=== PATIENT | female | born 1940 | race Caucasian/White ===

== ENCOUNTER → 2019-09-10 11:14 | Outpatient (BNVA) | payer MEDICARE, SELFPAY | PROVIDERS: Family Provider Internal Medicine; PCP Internal Medicine; Visit Provider Dermatology | DX: D48.9 Neoplasm of uncertain behavior, unspecified (principal); L82.0 Inflamed seborrheic keratosis; L57.0 Actinic keratosis; Z12.83 Encounter for screening for malignant neoplasm of skin | CPT/HCPCS: 11102; 17000; 17003; 88304; 88305; 99203; 99204 ==

== ENCOUNTER 2021-03-31 09:19 | Outpatient (CLI) | payer MEDICARE, SELFPAY ==
--- NOTE | 2021-03-31 09:30 | MM_ITS ---
WS: [id number] BILATERAL DIGITAL SCREENING MAMMOGRAPHY WITH CAD CLINICAL INFORMATION: SCREENING HISTORY: Screening mammogram. No current complaints. COMPARISON: TECHNIQUE: Bilateral CC and MLO views. FINDINGS: The breasts are composed of heterogeneous fibroglandular density tissue, which can limit the detectio n of small underlying mass lesions. Vascular calcification. Lucent centered calcifications. No suspic ious mass, asymmetry, calcifications, or architectural distortion. No evidence of malignancy. MM/[id number] IMPRESSION: BI-RADS: 2-Benign FOLLOW UP: 1 Year Follow-up Recommend return to annual screening mammography.
== END 2021-03-31 09:20 | disposition home or self-care (01) ==
PROVIDERS: PCP Internal Medicine; Visit Provider Internal Medicine
DX: Z12.31 Encounter for screening mammogram for malignant neoplasm of breast (principal)
CPT/HCPCS: 77067

== ENCOUNTER → 2021-07-13 13:16 | Outpatient (BNVA) | payer MEDICARE, SELFPAY | PROVIDERS: PCP Internal Medicine; Visit Provider Podiatrist Foot & Ankle Surgery | DX: L60.3 Nail dystrophy (principal); L85.1 Acquired keratosis [keratoderma] palmaris et plantaris; M20.41 Other hammer toe(s) (acquired), right foot; M20.42 Other hammer toe(s) (acquired), left foot | CPT/HCPCS: 17110; 99203; 99204 ==

== ENCOUNTER → 2021-09-13 12:43 | Outpatient (BNVA) | payer MEDICARE, SELFPAY | PROVIDERS: PCP Internal Medicine; Visit Provider Podiatrist Foot & Ankle Surgery | DX: L60.3 Nail dystrophy (principal); L85.1 Acquired keratosis [keratoderma] palmaris et plantaris; M20.40 Other hammer toe(s) (acquired), unspecified foot | CPT/HCPCS: 17110 ==

== ENCOUNTER 2022-05-18 09:56 | Outpatient (CLI) | payer MEDICARE, SELFPAY ==
--- NOTE | 2022-05-18 10:26 | MM_ITS ---
WS: [id number] BILATERAL SCREENING DIGITAL TOMOSYNTHESIS MAMMOGRAM WITH CAD HISTORY: SCREENING COMPARISON: 03/31/2021, 06/17/2013 and 06/05/2012 Bilateral CC and MLO views with tomosynthesis and synthetic mammography submitted. Computer aided det ection analyzed. Breast composition: The breasts are heterogeneously dense, which may obscure small masses. No suspici ous masses, microcalcifications or architectural distortion. Scattered asymmetries and benign calcifi cations in each breast. MM/[place] [id number] IMPRESSION: BI-RADS: 2-Benign FOLLOW UP: 1 Year Follow-up
== END 2022-05-18 09:57 | disposition home or self-care (01) ==
PROVIDERS: PCP Internal Medicine; Visit Provider Family Medicine
DX: Z12.31 Encounter for screening mammogram for malignant neoplasm of breast (principal)
CPT/HCPCS: 77063; 77067

== ENCOUNTER 2022-06-15 13:49 | Outpatient (CLI) | payer MEDICARE, SELFPAY ==
--- NOTE | 2022-06-15 14:19 | US_ITS ---
WS: [id number] LEFT 3D TOMOSYNTHESIS DIGITAL MAMMOGRAPHY WITH CAD CLINICAL INFORMATION: ABNORMAL ULTRASOUND HISTORY: Palpable LEFT breast lump COMPARISON: May 18, 2022 TECHNIQUE: 3 views of the left breast were obtained. FINDINGS: The left breast is composed of heterogeneous fibroglandular density tissue, which can limit the detec tion of small underlying mass lesions. In the area of palpable concern, there is dense parenchymal focal asymmetric density posterior depth with architectural distortion upper outer LEFT breast measuring 2.8 x 1.2 x 3.2 cm. This likely corre sponds to the below described ultrasound abnormality. Dense parenchymal tissue in this area is simila r in appearance over multiple prior examinations. Considering the ultrasound appearance recommend ult rasound-guided biopsy. Vascular calcification. Punctate and lucent centered calcifications. ULTRASOUND BREAST LEFT TECHNIQUE: Ultrasound left breast focused area of concern. FINDINGS: Ultrasound LEFT breast at 3:00 position 1 cm the nipple in the area of patient concern. Dense shadowi ng heterogeneous shadowing lesion and taller than wide. This has irregular borders and suspicious in appearance. Recommend further evaluation with ultrasound-guided biopsy. US/US breast LT limited* [id number] IMPRESSION: BI-RADS: 4-Suspicious Finding-Biopsy Should Be Considered FOLLOW UP: US Guided Biopsy Recommended
--- NOTE | 2022-06-15 15:44 | MM_ITS ---
WS: [id number] LEFT 3D TOMOSYNTHESIS DIGITAL MAMMOGRAPHY WITH CAD CLINICAL INFORMATION: ABNORMAL ULTRASOUND HISTORY: Palpable LEFT breast lump COMPARISON: May 18, 2022 TECHNIQUE: 3 views of the left breast were obtained. FINDINGS: The left breast is composed of heterogeneous fibroglandular density tissue, which can limit the detec tion of small underlying mass lesions. In the area of palpable concern, there is dense parenchymal focal asymmetric density posterior depth with architectural distortion upper outer LEFT breast measuring 2.8 x 1.2 x 3.2 cm. This likely corre sponds to the below described ultrasound abnormality. Dense parenchymal tissue in this area is simila r in appearance over multiple prior examinations. Considering the ultrasound appearance recommend ult rasound-guided biopsy. Vascular calcification. Punctate and lucent centered calcifications. ULTRASOUND BREAST LEFT TECHNIQUE: Ultrasound left breast focused area of concern. FINDINGS: Ultrasound LEFT breast at 3:00 position 1 cm the nipple in the area of patient concern. Dense shadowi ng heterogeneous shadowing lesion and taller than wide. This has irregular borders and suspicious in appearance. Recommend further evaluation with ultrasound-guided biopsy. MM/[id number] IMPRESSION: BI-RADS: 4-Suspicious Finding-Biopsy Should Be Considered FOLLOW UP: US Guided Biopsy Recommended
== END 2022-06-15 13:50 | disposition home or self-care (01) ==
PROVIDERS: PCP Internal Medicine; Visit Provider Family Medicine
DX: N64.59 Other signs and symptoms in breast (principal)
CPT/HCPCS: 76642; 77061; G0279

== ENCOUNTER 2022-06-26 11:59 | Outpatient (CLI) | payer MEDICARE, SELFPAY ==
--- NOTE | 2022-06-26 12:09 | US_ITS ---
WS: [email or web address] ULTRASOUND-GUIDED LEFT BREAST BIOPSY CLINICAL INFORMATION: ABNORMAL MAMMO COMPARISON: Ultrasound June 15, 2022 FINDINGS: The procedure including risks, benefits, and complications were discussed with the patient who agreed to proceed. Using sterile technique patient was prepped and draped in the usual sterile fashion. Aft er 1% lidocaine utilizing real-time ultrasound guidance 5 14-gauge cores were obtained of the LEFT br east lesion at the 2 o'clock position 3 cm from the nipple. Subsequently a titanium clip was placed i n the biopsy cavity. No immediate complications. PATHOLOGY DEMONSTRATES A. Breast, left, 2 o'clock, 3 cm from nipple, ultrasound-guided biopsy: - Invasive lobular carcinoma. - Cervantes Mckeon grade 2 (score 6). - Ductal carcinoma in situ (slide A2). - Breast profile has been performed and will be reported separately. US/[id number] IMPRESSION: 1. Uncomplicated ultrasound-guided LEFT breast biopsy. 2. The pathology demonstrates invasive lobular carcinoma grade 2. 3. Pathology also demonstrates DCIS. 4. Recommend breast surgery consultation for further evaluation. 5. Consider preoperative MRI considering pathology of lobular carcinoma to ass ess for multifocal disease. BI-RADS: 6-Known Biopsy-Proven Malignancy FOLLOW UP: Surgical Biopsy Recommended
[2022-06-29 14:19] LABS: Breast Profile ER,PR,HER2,Ki-6 See Report
== END 2022-06-26 12:00 | disposition home or self-care (01) ==
LOC: RAD 12:02
PROVIDERS: PCP Family Medicine; Visit Provider Family Medicine
DX: C50.412 Malignant neoplasm of upper-outer quadrant of left female breast (principal)
CPT/HCPCS: 19083; 88305; 88361; 88374

== ENCOUNTER 2022-08-03 11:03 | Oncology outpatient (recurring) (ONCR) | payer MEDICARE, SELFPAY | END 2022-08-11 23:59 | disposition home or self-care (01) | LOC: ONCMED 11:09 | PROVIDERS: PCP Family Medicine; Visit Provider Radiology Radiation Oncology | DX: C50.812 Malignant neoplasm of overlapping sites of left female breast (principal); Z17.0 Estrogen receptor positive status [ER+] | CPT/HCPCS: 99205 ==

== ENCOUNTER 2022-09-04 14:04 | Oncology outpatient (recurring) (ONCR) | payer MEDICARE, SELFPAY ==
--- OUTSIDE RECORDS SUMMARY | 2022-08-18 09:54 | XMS_ITS | Continuity of Care Document ---
Author Name Unknown Organization [facility] Address [address] [place] [address]- Care Team Providers Care Vacuum Kettle Cook Name Role Phone Alyssia BAR, Sophie Ward Primary Care Physicia n Encounter Au Financial Number [id number] Date(s): 07/18/22 - 07/18/22 [facility] [address] [place] [phone] Encounter Diagnosis Malignant neoplasm of upper-outer quadrant of left female breast(Discharge Diagnosis) - 07/18/22 Discharge Disposition: .Discharge to Home (Routine) Attending Physician: Monroe Ash MD Admitting Physician: Monroe Ash MD Allergies, Adverse Reactions, Alerts No Known Allergies Assessment and Plan Extracted from: Title:Instructions to Patients Author:Yris Valiente RN Date:07/18/22 Obstetrics and Gynecology Lumpectomy, Care After This sheet gives you information about how to care for yourself after your procedure. Your health care provider may also give you more specific instructions. If you have problems or questions, contact your health care provider. What can I expect after the procedure? After the procedure, it is common to have: ? ? Breast swelling. ? ? Breast tenderness. ? ? Stiffness in your arm or shoulder. ? ? A change in the shape and feel of your breast. ? ? Scar tissue that feels hard to the touch in the area where the lump was removed. Follow these instructions at home: Medicines ? ? Take blaq-gkk-ubydavi and prescription medicines only as told by your health care provider. ? ? If you were prescribed an antibiotic medicine, take it as told by your health care provider. Do not stop taking the antibiotic even if you start to feel better. ? ? Ask your health care provider if the medicine prescribed to you: ? ? Requires you to avoid driving or using heavy machinery. ? ? Can cause constipation. You may need to take these actions to prevent or treat constipation: ? ? Drink enough fluid to keep your urine pale yellow. ? ? Take hlde-iqu-bntvxyf or prescription medicines. ? ? Eat foods that are high in fiber, such as beans, whole grains, and fresh fruits and vegetables. ? ? Limit foods that are high in fat and processed sugars, such as fried or sweet foods. Incision care ? ? Follow instructions from your health care provider about how to take care of your incision. Make sure you: ? ? Wash your hands with soap and water before and after you change your bandage (dressing). If soap and water are not available, use hand ultrasonic tester. ? ? Change your dressing as told by your health care provider. ? ? Leave stitches (sutures), skin glue, or adhesive strips in place. These skin closures may need to stay in place for 2 weeks or longer. If adhesive strip edges start to loosen and curl up, you may trim the loose edges. Do not remove adhesive strips completely unless your health care provider tells you to do that. ? ? Check your incision area every day for signs of infection. Check for: ? ? More redness, swelling, or pain. ? ? Fluid or blood. ? ? Warmth. ? ? Pus or a bad smell. ? ? Keep your dressing clean and dry. ? ? If you were sent home with a surgical drain in place, follow instructions from your health care provider about emptying it. Bathing ? ? Do not take baths, swim, or use a hot tub until your health care provider approves. ? ? Ask your health care provider if you may take showers. You may only be allowed to take sponge baths. Activity ? ? Rest as told by your health care provider. ? ? Avoid sitting for a long time without moving. Get up to take short walks every 1? 2 hours. This is important to improve blood flow and breathing. Ask for help if you feel weak or unsteady. ? ? Return to your normal activities as told by your health care provider. Ask your health care provider what activities are safe for you. ? ? Be careful to avoid any activities that could cause an injury to your arm on the side of your surgery. ? ? Do not lift anything that is heavier than 10 lb (4.5 kg), or the limit that you are told, until your health care provider says that it is safe. Avoid lifting with the arm that is on the side of your surgery. ? ? Do not carry heavy objects on your shoulder on the side of your surgery. ? ? Do exercises to keep your shoulder and arm from getting stiff and swollen. Talk with your health care provider about which exercises are safe for you. General instructions ? ? Wear a supportive bra as told by your health care provider. ? ? Raise (elevate) your arm above the level of your heart while you are sitting or lying down. ? ? Do not wear tight jewelry on your arm, wrist, or fingers on the side of your surgery. ? ? Keep all follow-up visits as told by your health care provider. This is important. ? ? You may need to be screened for extra fluid around the lymph nodes and swelling in the breast and arm (lymphedema). Follow instructions from your health care provider about how often you should be checked. ? ? If you had any lymph nodes removed during your procedure, be sure to tell all of your health care providers. This is important information to share before you are involved in certain procedures, such as having blood tests or having your blood pressure taken. Contact a health care provider if: ? ? You develop a rash. ? ? You have a fever. ? ? Your pain medicine is not working. ? ? You have swelling, weakness, or numbness in your arm that does not improve after a few weeks. ? ? You have new swelling in your breast. ? ? You have any of these signs of infection: ? ? More redness, swelling, or pain in your incision area. ? ? Fluid or blood coming from your incision. ? ? Warmth coming from the incision area. ? ? Pus or a bad smell coming from your incision. Get help right away if you have: ? ? Very bad pain in your breast or arm. ? ? Swelling in your legs or arms. ? ? Redness, warmth, or pain in your leg or arm. ? ? Chest pain. ? ? Difficulty breathing. Summary ? ? After the procedure, it is common to have breast tenderness, swelling in your breast, and stiffness in your arm and shoulder. ? ? Follow instructions from your health care provider about how to take care of your incision. ? ? Do not lift anything that is heavier than 10 lb (4.5 kg), or the limit that you are told, until your health care provider says that it is safe. Avoid lifting with the arm that is on the side of your surgery. ? ? If you had any lymph nodes removed during your procedure, be sure to tell all of your health care providers. This is important information to share before you are involved in certain procedures, such as having blood tests or having your blood pressure taken. This information is not intended to replace advice given to you by your health care provider. Make sure you discuss any questions you have with your health care provider. Document Revised: 08/04/2019 Document Reviewed: 08/04/2019 [employer] Patient Education ?? 2021 [employer]. Pharmacology General Anesthesia, Adult, Care After This sheet gives you information about how to care for yourself after your procedure. Your health care provider may also give you more specific instructions. If you have problems or questions, contact your health care provider. What can I expect after the procedure? After the procedure, the following side effects are common: ? ? Pain or discomfort at the IV site. ? ? Nausea. ? ? Vomiting. ? ? Sore throat. ? ? Trouble concentrating. ? ? Feeling cold or chills. ? ? Feeling weak or tired. ? ? Sleepiness and fatigue. ? ? Soreness and body aches. These side effects can affect parts of the body that were not involved in surgery. Follow these instructions at home: For the time period you were told by your health care provider: ? ? Rest. ? ? Do not participate in activities where you could fall or become injured. ? ? Do not drive or use machinery. ? ? Do not drink alcohol. ? ? Do not take sleeping pills or medicines that cause drowsiness. ? ? Do not make important decisions or sign legal documents. ? ? Do not take care of children on your own. Eating and drinking ? ? Follow any instructions from your health care provider about eating or drinking restrictions. ? ? When you feel hungry, start by eating small amounts of foods that are soft and easy to digest (bland), such as toast. Gradually return to your regular diet. ? ? Drink enough fluid to keep your urine pale yellow. ? ? If you vomit, rehydrate by drinking water, juice, or clear broth. General instructions ? ? If you have sleep apnea, surgery and certain medicines can increase your risk for breathing problems. Follow instructions from your health care provider about wearing your sleep device: ? ? Anytime you are sleeping, including during daytime naps. ? ? While taking prescription pain medicines, sleeping medicines, or medicines that make you drowsy. ? ? Have a responsible adult stay with you for the time you are told. It is important to have someone help care for you until you are awake and alert. ? ? Return to your normal activities as told by your health care provider. Ask your health care provider what activities are safe for you. ? ? Take adpk-rie-scohsje and prescription medicines only as told by your health care provider. ? ? If you smoke, do not smoke without supervision. ? ? Keep all follow-up visits as told by your health care provider. This is important. Contact a health care provider if: ? ? You have nausea or vomiting that does not get better with medicine. ? ? You cannot eat or drink without vomiting. ? ? You have pain that does not get better with medicine. ? ? You are unable to pass urine. ? ? You develop a skin rash. ? ? You have a fever. ? ? You have redness around your IV site that gets worse. Get help right away if: ? ? You have difficulty breathing. ? ? You have chest pain. ? ? You have blood in your urine or stool, or you vomit blood. Summary ? ? After the procedure, it is common to have a sore throat or nausea. It is also common to feel tired. ? ? Have a responsible adult stay with you for the time you are told. It is important to have someone help care for you until you are awake and alert. ? ? When you feel hungry, start by eating small amounts of foods that are soft and easy to digest (bland), such as toast. Gradually return to your regular diet. ? ? Drink enough fluid to keep your urine pale yellow. ? ? Return to your normal activities as told by your health care provider. Ask your health care provider what activities are safe for you. This information is not intended to replace advice given to you by your health care provider. Make sure you discuss any questions you have with your health care provider. Document Revised: 10/14/2020 Document Reviewed: 05/13/2020 [employer] Patient Education ?? 2021 [employer] Future Appointments Appointment Date:07/26/2022 01:45:00 PM Scheduled Provider:Monroe Ash MD Location: Breast Surg Appointment Type:Established Patient Medications cloNIDine 0.1 mg oral tablet 0.1 mg = 1 tab, By mouth, BID, # 30 tab, Refill(s) 0, Pharmacy: [facility], [id number], 1 tab By mouth BID, 49.6, 07/18/22 8:26:00 CDT, kg, Weight (kg) (Clinical) Start Date: 07/18/22 Status: Ordered Multivitamin 1 tab, By mouth, Daily, To stop 07/14/22, Refill(s) 0 Start Date: 07/14/22 Status: Ordered [place] 5 mg-325 mg oral tablet 1 tab, By mouth, Q6H, 20 tab, 0, 0, Substitution Permitted, [facility], 62, Height (inches) (Clinical), 07/18/22 8:26:00 CDT, in, 49.6, Weight (kg) (Clinical), 07/18/22 8:26:00 CDT, kg Start Date: 07/18/22 Status: Ordered Problem List Condition Confirmation Course Effective Dates Status Health St atus Informant Ex-smoker Confirmed Active patient Malignant neoplasm of upper-outer quadrant of left female breast Confirmed Active Procedures Procedure Date Related Diagnosis Body Site Status BX/EXC LYMPH NODE OPEN DEEP AXILLARY NODE 07/18/22 Completed INSERTION BREAST IMPLANT MARLON E DAY OF MASTECTOMY 07/18/22 Completed MASTECTOMY PARTIAL 07/18/22 Comple cherise Appendectomy 1981 Completed Hysterectomy 1981 Completed Results Laboratory List Name Date BMP 07/18/22 Hemogram 07/18/22 Most recent to oldest [Reference Range]: 1 Anion Gap [2-15 mEq/L] 7 mEq/L (07/18/22 8:25 AM) Glucose, Serum/Plasma [70-100 mg/dL] 108 mg/dL *HI* (07/18/22 8:25 AM) WBC [4.8-10.8 Thous/mm3] 4.2 Thous/mm3 *LOW* (07/18/22 8:25 AM) Hct [37.0-47.0 %] 41.7 % (07/18/22 8:25 AM) Hgb [12.0-16.0 g/dL] 13.2 g/dL (07/18/22 8:25 AM) RBC [4.20-5.40 Million/mm3] 4.30 Million /mm3 (07/18/22 8:25 AM) MCV [80.0-100.0 fl] 97.0 fl (07/18/22 8:25 AM) MCH [26.0-34.0 pg] 30.7 pg (07/18/22 8:25 AM) MCHC [31.0-36.5 g/dL] 31.7 g/dL (07/18/22 8:25 AM) RDW [10.4-14.4 %] 12.6 % (07/18/22 8:25 AM) Platelets [130-440 Thous/mm3] 204 Thous/ mm3 (07/18/22 8:25 AM) MPV [9.4-12.4 fl] 10.3 fl (07/18/22 8:25 AM) Sodium [136-145 mEq/L] 142 mEq/L (07/18/22 8:25 AM) Potassium [3.5-5.1 mEq/L] 4.1 mEq/L (07/18/22 8:25 AM) Chloride [98-107 mEq/L] 108 mEq/L *HI* (07/18/22 8:25 AM) CO2 [21-32 mEq/L] 27 mEq/L (07/18/22 8:25 AM) BUN [7-18 mg/dL] 13 mg/dL (07/18/22 8:25 AM) Creatinine [0.55-1.02 mg/dL] 0.84 mg/dL (07/18/22 8:25 AM) Calcium [8.3-10.6 mg/dL] 9.3 mg/dL (07/18/22 8:25 AM) eGFR [>=60 mL/min/1.73 m2] 65 mL/min/1.7 3 m2 (07/18/22 8:25 AM) eGFR if [>=60 mL/min/1. 73 m2] 78 mL/min/1.73 m2 (07/18/22 8:25 AM) Radiology Reports * Exam Date Time Procedure Performing Provider Status 07/18/22 8:36 AM 07/18/22 8:37 AM MA Proc Mammo Breast Localization Left MA Mammo Post Procedure Uni Auth (Verified) Auth (Verified) Notes: (MA Proc Mammo Breast Localization Left) Reason For Exam: needle localization (MA Mammo Post Procedure Uni) Reason For Exam: needle localization MA Proc Mammo Breast Localization Left PROCEDURE: Mammographic left breast bracket wire localization, followed by unilateral digital mammogram of the left breast, without CAD. 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 MEDICATIONS: 4 cc buffered lidocaine SC; 10 cc buffered lidocaine with epinephrine SC. CONSENT: Obtained after the explanation of risks, benefits, and alternatives and placed in the chart. Timeout was performed. PROCEDURE DETAILS: Xm1 Tank Driver mammographic image of the left breast was obtained in the LM projection, using an alphanumeric grid. The breast was prepped in a sterile manner. The skin and deep tissues were anesthetized with buffered lidocaine. Two by cm 20G needles were inserted with the breast compressed in the LM projection, following the mammographic coordinates. An additional view was obtained to confirm accurate positioning, and a CC projection image was then obtained to assess needle depth. The needles were advanced to the appropriate depth, and localization wires were placed through the needles, bracketing the mass with associated architectural distortion, with the hooked tips just beyond. The needles were removed, and the area was cleansed and bandaged, securing the localization wires.The patient tolerated the procedure well and there were no complications. Post-procedure films showed the localization wires bracketing the mass with associated architectural distortion. IMPRESSION: Successful left breast bracket wire localization. Electronically signed by: Salma Jones 07/18/2022 11:56 AM Radiologist Salma Jones DO Signed 07/18/22 11:56:56 (Electronic Signature) Inlayer DAGMAR Technologist Austin Freire REPORT * Exam Date Time Procedure Performing Provider Status 07/18/22 10:11 AM NM Lymph Node Injection Isaias Chavira (Verified) Notes: (NM Lymph Node Injection) Reason For Exam: breast ca REPORT Radiologist Carlos Navarro MD Signed 07/18/22 10:13:15 (Electronic Signature) Inlayer SHILA Technologist NM Lymph Node Injection Lymphoscintigraphy, [place] Lymph Node Evaluation: Exam: NM Lymph Node Injection Date/Time of Exam: 07/18/2022 10:11 AM Diagnosis Codes: Comparison: None. Reading Location: [facility], [place] [address] \T\ [id number] Radiopharmaceutical: Tc-99m (technetium-99m) tilmanocept (Lymphoseek) Dose: 1.1 mCi intradermal Reason for Exam: breast ca. The above dose of radiopharmaceutical was injected into the felisha-aerolar area of the left breast. No imaging was performed. IMPRESSION: Injection of tracer as described above for purposes of sentinel node identification. Electronically signed by: Dr. Carlos Navarro 07/18/2022 10:13 AM Radiologist Carlos Navarro MD Signed 07/18/22 10:13:15 (Electronic Signature) Inlayer WDS Technologist AB Vital Signs Most recent to oldest [Reference Range]: 1 2 3 Blood Pressure 170/90mmHg (07/18/22 8:26 PM) 188/97mmHg *>HHI* (07/18/22 8:11 PM) 190/96mmHg *>HHI* (07/18/22 7:56 PM) Height (inches) (Clinical) 62 in (07/18/22 8:26 AM) Weight (kg) (Clinical) 49.6 kg (07/18/22 8:26 AM) Scale Type Bed (07/18/22 8:26 AM) Social History Social History Type Response Smoking Status Former smoker; Smoke less tobacco use: Never; Has the patient smoked in the last 365 days, even once? No; Type: Cigarettes; Number of years: 20; 1 entered on: 07/14/22 Sex Female 1Quit smoking approx age 42 Implantable Device List Procedure Provider Procedure Date Device Type Site Lumpectomy Breast with Senti timo Node Bio Unknown 07/18/22 Unknown Breast, Left Device Identifier Serial Number Lot or Batch Number Manufacturing Date Expiration Date Distinct Identification Code MRI Safety Implantable Status Assigning Authority [id number] Unknown Unknown 04/25/24 Unknown MR Mariza ibarra Active GS1 Hospital Discharge Instructions Patient Education 07/18/2022 19:56:45 General Anesthesia, Adult, Care After General Anesthesia, Adult, Care After This sheet gives you information about how to care for yourself after your procedure. Your health care provider may also give you more specific instructions. If you have problems or questions, contact your health care provider. What can I expect after the procedure? After the procedure, the following side effects are common: ??? Pain or discomfort at the IV site. ??? Nausea. ??? Vomiting. ??? Sore throat. ??? Trouble concentrating. ??? Feeling cold or chills. ??? Feeling weak or tired. ??? Sleepiness and fatigue. ??? Soreness and body aches. These side effects can affect parts of the body that were not involvedin surgery. Follow these instructions at home: For the time period you were told by your health care provider: ??? Rest. ??? Do not participate in activities where you could fall or become injured. ??? Do not drive or use machinery. ??? Do not drink alcohol. ??? Do not take sleeping pills or medicines that cause drowsiness. ??? Do not make important decisions or sign legal documents. ??? Do not take care of children on your own. Eating and drinking ??? Follow any instructions from your health care provider about eating or drinking restrictions. ??? When you feel hungry, start by eating small amounts of foods that are soft and easy to digest (bland), such as toast. Gradually return to your regular diet. ??? Drink enough fluid to keep your urine pale yellow. ??? If you vomit, rehydrate by drinking water, juice, or clear broth. General instructions ??? If you have sleep apnea, surgery and certain medicines can increase your risk for breathing problems. Follow instructions from your health care provider about wearing your sleep device: ??? Anytime you are sleeping, including during daytime naps. ??? While taking prescription pain medicines, sleeping medicines, or medicines that make you drowsy. ??? Have a responsible adult stay with you for the time you are told. It is important to have someone help care for you until you are awake and alert. ??? Return to your normal activities as told by your health care provider. Ask your health care provider what activities are safe for you. ??? Take rzmc-wjz-aiinmsx and prescription medicines only as told by your health care provider. ??? If you smoke, do not smoke without supervision. ??? Keep all follow-up visits as told by your health care provider. This is important. Contact a health care provider if: ??? You have nausea or vomiting that does not get better with medicine. ??? You cannot eat or drink without vomiting. ??? You have pain that does not get better with medicine. ??? You are unable to pass urine. ??? You develop a skin rash. ??? You have a fever. ??? You have redness around your IV site that gets worse. Get help right away if: ??? You have difficulty breathing. ??? You have chest pain. ??? You have blood in your urine or stool, or you vomit blood. Summary ??? After the procedure, it is common to have a sore throat or nausea. It is also common to feel tired. ??? Have a responsible adult stay with you for the time you are told. It is important to have someone help care for you until you are awake and alert. ??? When you feel hungry, start by eating small amounts of foods that are soft and easy to digest (bland), such as toast. Gradually return to your regular diet. ??? Drink enough fluid to keep your urine pale yellow. ??? Return to your normal activities as told by your health care provider. Ask your health care provider what activities are safe for you. This information is not intended to replace advice given to you by your health care provider. Make sure you discuss any questions you have with your health care provider. Document Revised: 10/14/2020 Document Reviewed: 05/13/2020 [employer] Patient Education ?? 2021 [employer]. 07/18/2022 19:56:45 Lumpectomy, Care After Lumpectomy, Care After This sheet gives you information about how to care for yourself after your procedure. Your health care provider may also give you more specific instructions. If you have problems or questions, contact your health care provider. What can I expect after the procedure? After the procedure, it is common to have: ??? Breast swelling. ??? Breast tenderness. ??? Stiffness in your arm or shoulder. ??? A change in the shape and feel of your breast. ??? Scar tissue that feels hard to the touch in the area where the lump was removed. Follow these instructions at home: Medicines ??? Take trvf-ozx-uzrgtrg and prescription medicines only as told by your health care provider. ??? If you were prescribed an antibiotic medicine, take it as told by your health care provider. Donot stop taking the antibiotic even if you start to feel better. ??? Ask your health care provider if the medicine prescribed to you: ??? Requires you to avoid driving or using heavy machinery. ??? Can cause constipation. You may need to take these actions to prevent or treat constipation: ??? Drink enough fluid to keep your urine pale yellow. ??? Take dadn-wvi-pnsxgxi or prescription medicines. ??? Eat foods that are high in fiber, such as beans, whole grains, and fresh fruits and vegetables. ??? Limit foods that are high in fat and processed sugars, such as fried or sweet foods. Incision care ??? Follow instructions from your health care provider about how to take care of your incision. Make sure you: ??? Wash your hands with soap and water before and after you change your bandage (dressing). If soap and water are not available, use hand ultrasonic tester. ??? Change your dressing as told by your health care provider. ??? Leave stitches (sutures), skin glue, or adhesive strips in place. These skin closures may need to stay in place for 2 weeks or longer. If adhesive strip edges start to loosen and curl up, you maytrim the loose edges. Do not remove adhesive strips completely unless your health care provider tells you to do that. ??? Check your incision area every day for signs of infection. Check for: ??? More redness, swelling, or pain. ??? Fluid or blood. ??? Warmth. ??? Pus or a bad smell. ??? Keep your dressing clean and dry. ??? If you were sent home with a surgical drain in place, follow instructions from your health careprovider about emptying it. Bathing ??? Do not take baths, swim, or use a hot tub until your health care provider approves. ??? Ask your health care provider if you may take showers. You may only be allowed to take sponge baths. Activity ??? Rest as told by your health care provider. ??? Avoid sitting for a long time without moving. Get up to take short walks every 1???2 hours. This is important to improve blood flow and breathing. Ask for help if you feel weak or unsteady. ??? Return to your normal activities as told by your health care provider. Ask your health care provider what activities are safe for you. ??? Be careful to avoid any activities that could cause an injury to your arm on the side of your surgery. ??? Do not lift anything that is heavier than 10 lb (4.5 kg), or the limit that you are told, untilyour health care provider says that it is safe. Avoid lifting with the arm that is on the side of your surgery. ??? Do not carry heavy objects on your shoulder on the side of your surgery. ??? Do exercises to keep your shoulder and arm from getting stiff and swollen. Talk with your health care provider about which exercises are safe for you. General instructions ??? Wear a supportive bra as told by your health care provider. ??? Raise (elevate) your arm above the level of your heart while you are sitting or lying down. ??? Do not wear tight jewelry on your arm, wrist, or fingers on the side of your surgery. ??? Keep all follow-up visits as told by your health care provider. This is important. ??? You may need to be screened for extra fluid around the lymph nodes and swelling in the breast and arm (lymphedema). Follow instructions from your health care provider about how often you should be checked. ??? If you had any lymph nodes removed during your procedure, be sure to tell all of your health care providers. This is important information to share before you are involved in certain procedures, such as having blood tests or having your blood pressure taken. Contact a health care provider if: ??? You develop a rash. ??? You have a fever. ??? Your pain medicine is not working. ??? You have swelling, weakness, or numbness in your arm that does not improve after a few weeks. ??? You have new swelling in your breast. ??? You have any of these signs of infection: ??? More redness, swelling, or pain in your incision area. ??? Fluid or blood coming from your incision. ??? Warmth coming from the incision area. ??? Pus or a bad smell coming from your incision. Get help right away if you have: ??? Very bad pain in your breast or arm. ??? Swelling in your legs or arms. ??? Redness, warmth, or pain in your leg or arm. ??? Chest pain. ??? Difficulty breathing. Summary ??? After the procedure, it is common to have breast tenderness, swelling in your breast, and stiffness in your arm and shoulder. ??? Follow instructions from your health care provider about how to take care of your incision. ??? Do not lift anything that is heavier than 10 lb (4.5 kg), or the limit that you are told, untilyour health care provider says that it is safe. Avoid lifting with the arm that is on the side of your surgery. ??? If you had any lymph nodes removed during your procedure, be sure to tell all of your health care providers. This is important information to share before you are involved in certain procedures, such as having blood tests or having your blood pressure taken. This information is not intended to replace advice given to you by your health care provider. Make sure you discuss any questions you have with your health care provider. Document Revised: 08/04/2019 Document Reviewed: 08/04/2019 [employer] Patient Education ?? 2021 [employer]. Follow Up Care 07/14/2022 09:55:27 With:Monroe Ash Address: [address] [place] [address] [facility] (1) When:07/26/2022 Comments:Call the office with any questions or concerns Surgical operation note * Monroe Ash MD: PERFORM, SIGN, VERIFY Event Display: Operative Report Authored Date: [id number] Patient: CIPRIANO PAYNE Age: 82 years Sex: Female : 1940 Associated Diagnoses: None Author: Monroe Ash MD Postoperative Information Date/ Time: 07/18/2022 18:01:00 Preoperative Diagnosis: Preop Dx (ST) SN - GCD - Preop Diagnosis: Left breast cancer (07/18/22 16:29:04) SN - GCD - Preop Diagnosis: LEFT BREAST CANCER (07/18/22 08:59:59). Postoperative Diagnosis: Postop Dx (ST) SN - GCD - Post Op Diagnosis: Left breast cancer (07/18/22 16:29:04) SN - GCD - Post Op Diagnosis: LEFT BREAST CANCER (07/18/22 08:59:59). Procedure: Procedure (ST) SN - SgP - Procedure: Lumpectomy Breast with [place] Node Biopsy (07/18/22) Sn - SgP - Surgeon Preferred Procedure: NEEDLE DIRECTED, with Biozorb placement (07/18/22) SN - SgP - Modifiers: Left (07/18/22). Performed by: Primary Surgeon (ST) Surgeon - Primary: Salma Jones DO Surface Mount Technology Operator: Physician's Surface Mount Technology Operator (ST) Physician's Surface Mount Technology Operator: Oksana Valadez Anesthetic Used: Anesthesia Type (ST) SN - SgP - Anesthesia Type: 3-General (07/18/22). Findings: INDICATIONS: The patient is a 82 year old with a left breast cancer. After extensive discussion, her preference was a partial mastectomy/lumpectomy. She agreed and understood need for Biozorb placement. She understood rationale for sentinel node biopsy and wanted to proceed. DESCRIPTION OF PROCEDURE: TERESE Dunbar was in the room the entire case and assisted with allcritical parts of operation including retraction. Breast was Prepped and draped in sterile fashion.Mammograms were placed on the overhead. Local was infiltrated and incision was made, sharply dissected through the skin and subcu down around the reinforced segment and the tissue between the 2 wiresplaced for localization. Excision of mass in the area of concern was performed. Margin markers wereplaced. Specimen radiograph indicated the area was nicely included. Sent this for permanent pathologic evaluation and confirmed it with the radiologist. I Established hemostasis in lumpectomy cavity,irrigated, suctioned out irrigation fluid. Took additional margin at the medial and caudal edges ofthe lumpectomy cavity. These were each appropriately marked and sent separately to pathology pleasemake note the deep extent of the lumpectomy extended to the pectoralis muscle. Following the partial mastectomy, attention was turned to placement of the BioZorb marker. The 3 ??dimensional marker implant was used to assist with delineation of the tumor bed location following mobilization and rearrangement of local tissue flaps for partial breast reconstruction. Sizers were used to assess the region of the tumor bed excision site, and it was determined that a 4 x 5 cm marker would be most suitable for implantation. Prior to placement, the cavity was checked for hemostasisand several stay-??-sutures were placed in order to secure the marker to the adjacent margin of tissue. A total of four 3??-0 PDS stay sutures were placed into the margins of the surgical cavity, and held in place with hemostats prior to placing the bio absorbable implant into the cavity. Each suture was placed into a different aspect of the tissue flaps that would ultimately serve to reconstruct thearea of the surgical defect created by the partial mastectomy. Sutures were placed superiorly, medially, laterally, and inferiorly. I did mobilize small flaps of parenchyma breast tissue with this intact blood supply to help fill the defect and overlie the BioZorb. I then closed in 2 layers with 3-0 Vicryl subcutaneous, 4-0 Monocryl subcuticular. I did mobilize small flaps of parenchyma breast tis franc with this intact blood supply to help fill the defect and overlie the BioZorb. I turned my attention to the axilla. Local was infiltrated and incision was made. Sharp dissected through the skin and subcu in the axilla. Identified the sentinel node times 3. Sent for permanent pathologic evaluation. Clips placed on lymphatics, hemostasis was obtained in the axilla and it was closed in 2 layers with 3-0 Vicryl subcutaneous, 4-0 Monocryl subcuticular. Steri-Strips and dressingswere placed. The patient tolerated the procedure quite well. Estimated blood loss less than 50 mL. . Specimens Removed: Specimens (ST) SN - CS - Comments: Caudal Margin Reexcision Stitch Specimen Side (07/18/22 17:12:49) SN - CS - Comments: Medial Margin Reexcision Stitch Specimen Side (07/18/22 17:12:49) SN - CS - Comments: Left Axillary [place] Node ??#2 (07/18/22 17:07:30) SN - CS - Comments: Left Axillary [place] Node ??#1 (07/18/22 17:07:30) SN - CS - Comments: Left lumpectomy (07/18/22 16:48:56). Estimated Blood Loss: 100 ml. Complications: None. Description of Techniques: Standard. Implants/Grafts: Implant (ST) SN - IL - Implant Description: MARKER BIOZORB 3X4CM [id number] (07/18/22). Final Count Verification: SN - FCV (ST) SN - FCV - Instruments (Count Correct): n/a (07/18/22 17:36:34) SN - FCV - Sharps/Hiltons (Count Corre: Yes (07/18/22 17:36:34) SN - FCV - Sponges (Count Correct): Yes (07/18/22 17:36:34). Electronically signed by:Monroe Ash MD 07/18/22 18:05 Radiology * Carlos Navarro MD: PERFORM, TRANSCRIBE, VERIFY, VERIFY Event Display: Report Authored Date: [id number] Radiologist Carlos Navarro MD Signed 07/18/22 10:13:15 (Electronic Signature) Inlayer WDS Technologist AB * Salma Jones DO: PERFORM, TRANSCRIBE, VERIFY, VERIFY Event Display: Powerscribe Read Authored Date: [id number] PROCEDURE: Mammographic left breast bracket wire localization, followed by unilateral digital mammogram of the left breast, without CAD. 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 MEDICATIONS: 4 cc buffered lidocaine SC; 10 cc buffered lidocaine with epinephrine SC. CONSENT: Obtained after the explanation of risks, benefits, and alternatives and placed in the chart. Timeout was performed. PROCEDURE DETAILS: Xm1 Tank Driver mammographic image of the left breast was obtained in the LM projection, using an alphanumeric grid. The breast was prepped in a sterile manner. The skin and deep tissues were anesthetized with buffered lidocaine. Two by cm 20G needles were inserted with the breast compressed in the LM projection, following the mammographic coordinates. An additional view was obtained to confirm accurate positioning, and a CC projection image was then obtained to assess needle depth. The needles were advanced to the appropriate depth, and localization wires were placed through the needles, bracketing the mass with associated architectural distortion, with the hooked tips just beyond. The needles were removed, and the area was cleansed and bandaged, securing the localization wires.The patient tolerated the procedure well and there were no complications. Post-procedure films showed the localization wires bracketing the mass with associated architectural distortion. IMPRESSION: Successful left breast bracket wire localization. Electronically signed by: Salma Jones 07/18/2022 11:56 AM Radiologist Salma Jones DO Signed 07/18/22 11:56:56 (Electronic Signature) Inlayer DAGMAR Technologist Austin Freire Note * Carlos Navarro MD: PERFORM, TRANSCRIBE, VERIFY, VERIFY Event Display: Powerscribe Read Authored Date: [id number] Lymphoscintigraphy, [place] Lymph Node Evaluation: Exam: NM Lymph Node Injection Date/Time of Exam: 07/18/2022 10:11 AM Diagnosis Codes: Comparison: None. Reading Location: [place] [address] Radiopharmaceutical: Tc-99m (technetium-99m) tilmanocept (Lymphoseek) Dose: 1.1 mCi intradermal Reason for Exam: breast ca. The above dose of radiopharmaceutical was injected into the felisha-aerolar area of the left breast. No imaging was performed. IMPRESSION: Injection of tracer as described above for purposes of sentinel node identification. Electronically signed by: Dr. Carlos Navarro 07/18/2022 10:13 AM Radiologist Carlos Navarro MD Signed 07/18/22 10:13:15 (Electronic Signature) Inlayer SHILA Technologist * Salma Jones DO: PERFORM, TRANSCRIBE, VERIFY, VERIFY Event Display: Report Authored Date: [id number] Cardiology * Deon Mccullough MD: SIGN, VERIFY Event Display: EKG 12-Lead Authored Date: [id number] Patient Care team information Care Team Personnel Name: Monroe Ash MD Position: PX Physician - General Surgery Med Service: General Surgery Member Role: Ordering Physician Address: Address: [address] [place] [id number]- Care Team Related Persons Name: ABDULLAHINAMRATA CHERRY Address: home [address] [facility] [place] [id number] Name: CHERRY PAYNE
--- NOTE | 2022-08-22 13:28 | N.ONRAD NP_ITS ---
Radiation Oncology Consultation Patient Name: Opal Hong Date of : 1940 Date of Service: 08/22/2022 Attending Physician: Thong Amaral M.D. Opal Hong was seen in consultation at the request of Monroe Ash M.D. this afternoon for evaluation regarding potential adjuvant breast radiotherapy in the management of an early-stage breast cancer. She was evaluated by her primary care physician for a left breast mass. A 3D tomosynthesis mammogram (independently reviewed in [facility]) was ordered on June 15, 2022 identified a 2.8 cm x 1.2 cm x 3.2 cm focal asymmetry within the left upper-outer quadrant of the breast. Ultrasonography confirmed a lesion with shadowing located within the left breast at the 3 o'clock position that was 1 cm from the nipple. An ultrasound-guided breast biopsy obtained on June 26, 2022 diagnosed a grade 2 invasive lobular carcinoma. The breast cancer prognostic profile reported estrogen receptor positivity (90%), strong receptor positivity (50%), and HER2 negative (1+; ratio 1). The KI???67 was 5%. A left wire-guided lumpectomy and sentinel lymph node biopsy was performed by Monroe Ash M.D. on July 18, 2022. The pathology report described a 2.9 cm grade 2 invasive lobular carcinoma with LCIS present. All surgical margins were negative for malignancy. A total of 2 benign sentinel lymph nodes were harvested. An Oncotype DX recurrence score was 17 (<1% chemotherapy benefit). She was referred to discuss adjuvant radiotherapy. I reviewed the [place] [employer] Commission on Cancer Staging for breast cancer and specifically the patient's pathological stage IA (T2N0) corresponding to her disease and The National Comprehensive Cancer Network Guidelines for the omission of breast irradiation in patients 70 years of age or older with estrogen receptor positive, clinically node-negative, T1-2 tumors who will receive adjuvant endocrine therapy. This endorsement is in accordance with the randomized trial (CALGB 9343) published in The [place] Journal of Medicine that demonstrated the addition of radiotherapy to endocrine therapy improved local control compared to endocrine therapy alone without a breast cancer-specific survival nor overall survival advantage. The patient???s treatment plan was discussed with Anderson Beltran M.D. Signed by: Dr. Thong Amaral 08/22/2022 1:27:31 PM
== END 2022-09-11 23:59 | disposition home or self-care (01) ==
PROVIDERS: PCP Family Medicine; Visit Provider Internal Medicine Medical Oncology
DX: C50.919 Malignant neoplasm of unspecified site of unspecified female breast (principal); M85.80 Other specified disorders of bone density and structure, unspecified site; Z78.0 Asymptomatic menopausal state; Z87.891 Personal history of nicotine dependence; Z85.828 Personal history of other malignant neoplasm of skin
CPT/HCPCS: 99204; 99214

== ENCOUNTER 2022-09-07 14:41 | Outpatient (CLI) | payer MEDICARE, SELFPAY ==
--- NOTE | 2022-09-07 15:00 | XR_ITS ---
WS: [id number] DEXA (DUAL ENERGY X-RAY ABSORPTIOMETRY) Bone mineral density was performed using a [employer] machine. HISTORY: History of osteopenia COMPARISON: None available. Lumbar spine BMD (L1-L4): 0.879 g/cm2 T score: -2.5 Z score: -0.2 Total hip BMD: Left: 0.761 g/cm2. T score: -2.0 Z score: 0.6 Right: 0.740 g/cm2. T score: -2.1 Z score: 0.4 10 year probability of a major osteoporotic fracture is 22.0%. XR/XR DEXA axial skeleton* [id number] IMPRESSION: OSTEOPOROSIS based upon the WHO classification for females.
== END 2022-09-07 14:42 | disposition home or self-care (01) ==
PROVIDERS: PCP Family Medicine; Visit Provider Internal Medicine Medical Oncology
DX: M81.0 Age-related osteoporosis without current pathological fracture (principal); M85.80 Other specified disorders of bone density and structure, unspecified site; C50.919 Malignant neoplasm of unspecified site of unspecified female breast; Z78.0 Asymptomatic menopausal state
CPT/HCPCS: 77080

== ENCOUNTER 2022-09-12 09:53 | Oncology outpatient (recurring) (ONCR) | payer MEDICARE, SELFPAY ==
[2022-09-12 10:01] LABS: Basophils % 0.8 %; Eosinophils # 0.1 10^3/uL (0.0-0.8); Eosinophils % 2.3 %; Hematocrit 41.5 % (37.0-47.0); Hemoglobin 13.4 g/dL (11.5-15.3); Lymphocytes # 2.2 10^3/uL (0.8-4.8); Lymphocytes % 44.7 %; Mean Corpuscular HGB Conc 32.3 g/dL (30.0-36.0); Mean Corpuscular Hemoglobin 31.3 pg (28.0-34.0); Mean Platelet Volume 9.8 fL (7.4-10.4); Monocytes # 0.5 10^3/uL (0.2-0.9); Monocytes % 9.3 %; Neutrophils # 2.08 10^3/uL (1.8-7.7); Neutrophils % 42.7 %; Nucleated Red Blood Cells % 0 %; Platelet Count 193 10^3/cmm (130-400); Red Blood Count 4.28 10^6/uL (4.1-5.3); White Blood Count 4.9 10^3/uL (4.0-10.0)
[2022-09-12 10:27] LABS: Alanine Aminotransferase 14 U/L (0-33); Albumin Level 4.3 g/dL (3.5-5.2); Alkaline Phosphatase 67 U/L (35-105); Anion Gap 13.3 (5-19); Aspartate Amino Transferase 21 U/L (0-32); Blood Urea Nitrogen 15 mg/dL (8-23); Calcium 9.8 mg/dL (8.5-10.5); Carbon Dioxide 29 mmol/L (22-29); Chloride 102 mmol/L (98-107); Globulin 2.8 g/dL (1.3-4.6); Glucose 79 mg/dL (65-115); Osmolality Calculated 290 mOsm/kg (285-295); Potassium 4.3 mmol/L (3.5-5.1); Sodium 140 mmol/L (136-145); Total Bilirubin 0.4 mg/dL (0.15-1.2); Total Protein 7.1 g/dL (6.6-8.7)
[2022-09-12 11:23] LABS: 25 Hydroxy Vitamin D 56 ng/mL (30-100)
[2022-09-12 11:48] LABS: Thyroid Stimulating Hormone 3.13 uIU/mL (0.27-4.20); Vitamin B12 878 pg/mL (232-1245)
== END 2022-10-12 23:59 | disposition home or self-care (01) ==
PROVIDERS: Internal Medicine Medical Oncology; PCP Family Medicine; Visit Provider Internal Medicine Medical Oncology
DX: C50.812 Malignant neoplasm of overlapping sites of left female breast (principal); Z17.0 Estrogen receptor positive status [ER+]; R54 Age-related physical debility; R53.0 Neoplastic (malignant) related fatigue; Z79.899 Other long term (current) drug therapy; Z79.811 Long term (current) use of aromatase inhibitors; Z53.9 Procedure and treatment not carried out, unspecified reason
CPT/HCPCS: 36415; 80053; 82306; 82607; 84443; 85025; 99215

== ENCOUNTER → 2023-08-14 08:40 | Outpatient (BNVA) | payer MEDICARE, SELFPAY | PROVIDERS: PCP Family Medicine; Referring Provider Family Medicine; Visit Provider Specialist | DX: G30.9 Alzheimer's disease, unspecified (principal); F02.80 Dementia in other diseases classified elsewhere, unspecified severity, without behavioral disturbance, psychotic disturbance, mood disturbance, and anxiety; Z78.9 Other specified health status; R41.3 Other amnesia; R03.0 Elevated blood-pressure reading, without diagnosis of hypertension | CPT/HCPCS: 96116; 99204; 99205 ==

== ENCOUNTER 2023-09-12 09:08 | Outpatient (CLI) | payer MEDICARE, SELFPAY ==
--- NOTE | 2023-09-12 09:14 | MM_ITS ---
WS: [id number] DIAGNOSTIC BILATERAL DIGITAL BREAST TOMOSYNTHESIS MAMMOGRAPHY WITH CAD HISTORY: HX OF BREAST CANCER, patient has chosen not to proceed with chemotherapy or radiation. COMPARISON: 06/15/2022, 05/18/2022, 03/31/2021 TECHNIQUE: Bilateral craniocaudad, mediolateral oblique, and mediolateral views are submitted with to mosyessy and RAYSA. Computer aided detection utilized. Breast composition: The breasts are heterogeneously dense, which may obscure small masses. Scattered fibroglandular densities throughout each breast. Post lumpectomy biopsy clip and cavity is noted in t he upper outer quadrant of the LEFT breast. This is the site of lumpectomy and known neoplasm. Suspec t mild progression of soft tissue surrounding the lumpectomy site. These changes may all be related t o the lumpectomy and surgery or progression of tumor. Extensive breast arterial calcifications. MM/[place] [id number] IMPRESSION: BI-RADS: 6-Known Biopsy-Proven Malignancy FOLLOW UP: See Report Patient has a known malignancy in the upper outer quadrant of the LEFT breast f or which no radiation or chemotherapy is being performed. There has been a slig ht progression in the peripheral soft tissue at the site of the lumpectomy. Thi s all may be postsurgical changes or progression of tumor.
== END 2023-09-12 09:09 | disposition home or self-care (01) ==
LOC: RAD 09:09
PROVIDERS: PCP Family Medicine; Visit Provider Family Medicine
DX: Z12.31 Encounter for screening mammogram for malignant neoplasm of breast (principal); Z85.3 Personal history of malignant neoplasm of breast
CPT/HCPCS: 77062; G0279

== ENCOUNTER 2023-09-27 15:05 | Outpatient (CLI) | payer MEDICARE, SELFPAY ==
--- NOTE | 2023-09-27 15:15 | MR_ITS ---
WS: [id number] MRI BRAIN WITHOUT CONTRAST HISTORY: G30.9 - Alzheimer's disease, unspecified COMPARISON: None available. TECHNIQUE: Diffusion imaging, multiplanar T1, T2 and FLAIR imaging obtained. No diffusion abnormalities. No acute infarct. Moderate T2 and FLAIR signal hyperintensities surroundi ng the ventricles and extending supratentorial. Additional signal abnormalities in the insular ribbon s bilaterally. There is some mild prior ischemic change in the davi and RIGHT cerebellum. Moderate hi ppocampal atrophy. No hemorrhage or prior infarct. Ventricles and extra-axial spaces are normal. No inferior displacement of cerebellar tonsils. The sella turcica and pituitary gland are unremarkabl e. Dural venous sinuses and jackson of Miguel demonstrate no abnormality on this unenhanced studies. Paranasal sinuses: Clear. Mastoid air cells: Normal. Calvarium and scalp: Intact. MR/MR head wo con* [id number] IMPRESSION: 1. No acute infarct, no hemorrhage or edema. 2. Moderate atrophy and small vessel ischemic disease. Small vessel disease is predominantly surrounding the ventricles with a smaller amount of microangiopa thic disease in the davi and RIGHT cerebellum. 3. Moderate hippocampal atrophy.
== END 2023-09-27 15:06 | disposition home or self-care (01) ==
LOC: RAD 15:07
PROVIDERS: PCP Family Medicine; Visit Provider Specialist
DX: G30.9 Alzheimer's disease, unspecified (principal); F02.80 Dementia in other diseases classified elsewhere, unspecified severity, without behavioral disturbance, psychotic disturbance, mood disturbance, and anxiety; Z78.9 Other specified health status; G31.9 Degenerative disease of nervous system, unspecified
CPT/HCPCS: 70551

== ENCOUNTER → 2023-11-13 13:49 | Outpatient (BNVA) | payer MEDICARE, SELFPAY | PROVIDERS: PCP Family Medicine; Visit Provider Specialist | DX: G30.9 Alzheimer's disease, unspecified (principal); F02.80 Dementia in other diseases classified elsewhere, unspecified severity, without behavioral disturbance, psychotic disturbance, mood disturbance, and anxiety; Z78.9 Other specified health status; I20.0 Unstable angina; R41.3 Other amnesia; R03.0 Elevated blood-pressure reading, without diagnosis of hypertension | CPT/HCPCS: 99215 ==

== ENCOUNTER → 2023-11-14 11:19 | Outpatient (BNVA) | payer MEDICARE, SELFPAY | PROVIDERS: PCP Family Medicine; Visit Provider Family Medicine | DX: I20.0 Unstable angina (principal); Z78.9 Other specified health status; M81.0 Age-related osteoporosis without current pathological fracture; G30.9 Alzheimer's disease, unspecified; F02.80 Dementia in other diseases classified elsewhere, unspecified severity, without behavioral disturbance, psychotic disturbance, mood disturbance, and anxiety; L90.0 Lichen sclerosus et atrophicus | CPT/HCPCS: 80053; 80061; 82306; 82607; 82746; 83735; 84443; 85025 ==

== ENCOUNTER 2023-12-24 08:47 | Outpatient (CLI) | payer MEDICARE, SELFPAY ==
--- NOTE | 2023-12-24 | ECG_ITS ---
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 Interpretive Statements Lung unchanged pre/post procedure; Intraprocedure shortess of breath; Symptoms resoled by discharge PROCEDURE: At the baseline, the EKG revealed normal sinus rhythm with diffuse nonspecific ST changes. The baseline heart was 72 bpm with a blood pressue of 166/97 mm of Hg Lexiscan was infused over a period of 20 seconds. A total of 0.4 milligrams of Lexiscan was infused. The stress phase was continued for a total of 5 minutes. Heart rate at the end of the stress phase was 76 bpm with a blood pressure 166/92 mm of Hg. The EKG at the peak infusion revealed no significant changes. Sestamibi was injected 20 seconds after the Lexiscan infusion. Heart rate at the end of the recovery phase was 69 bpm with a blood pressure of 155/78 mm of Hg. CONCLUSION: 1. No significant EKG changes with the LexiScan infusion 2. No LexiScan induced chest pain or cardiac arrhythmia 3. Normal blood pressure and heart rate response 4. Sestamibi/sestamibi perfusion scan pending; see separate report. Electronically Signed On 12-29-2023 12:51:52 PROGRESS MAN by Clay Eastman M.D. [id number]
[2023-12-24 09:29] VITALS: BMI 18.3
--- NOTE | 2023-12-24 09:30 | NMCV_ITS ---
NM isaias perf SPECT r/s* [id number] Opal Hong Age: 83 Gender: F : 1940 Exam Date: 12/24/2023 09:58 Ordering Phys: Nu Malhotra MD Technologist: ARTURO Witt Exam Location: [facility] Indications: cp STRESS TEST Please see separate stress test report in [facility] for full findings IMAGE PROTOCOL Rest/Stress 1 Lexiscan Day Radiopharmaceutical Dose (mCi) Administration Site Administered by Rest: Tc-99m 10.5 IV ARTURO Witt Sestamibi Stress:Tc-99m 32.6 IV ARTURO Rowe Sestamibi Rest: 24-Dec-2023 60 Discovery 630 Stress: 24-Dec-2023 15 Discovery 630 0.4mg Lexiscan. Supine position only as patient was unable to lay prone. SPECT RESULTS Technical Quality: Good Raw Data Analysis: Normal Image Corrections: No attenuation or motion correction applied Summed Stress Score: 0 Summed Rest Score: 8 Summed Difference Score: 0 PERFUSION FINDINGS Fairly uniform myocardial tracer uptake with no significant perfusion abnormalities FUNCTIONAL RESULTS (calculated via Gated SPECT) Stress Image LV EF (%): 80 Stress EDV (mL):41 TID: 0.7 Stress ESV (mL):8 FUNCTIONAL FINDINGS: Segmental wall motion analysis revealing no gross wall motion abnormalities IMPRESSIONS 1. Myocardial perfusion imaging revealing fairly uniform myocardial tracer uptake with no significant perfusion abnormalities. 2. Normal LV ejection fraction of 80%. 3. LV wall motion analysis revealing no gross wall motion abnormalities. 4. Normal LV volume Low probability for coronary ischemia, based on the above findings Dr Clay Eastman MD [facility] (Electronically Signed) Final Date: 24 December 2023 23:23 S
[2023-12-24] MEDS: regadenoson 0.4 Mg/5 ml Syringe IVP (10:43)
[2023-12-24 10:53] VITALS: BP 155/78; PULSE 68
== END 2023-12-24 08:48 | disposition home or self-care (01) ==
PROVIDERS: PCP Family Medicine; Visit Provider Specialist
DX: I20.0 Unstable angina (principal); R06.02 Shortness of breath
CPT/HCPCS: 36415; 78452; 93017; 96374; A9500; J2785

== ENCOUNTER → 2024-07-08 13:06 | Outpatient (BNVA) | payer MEDICARE, SELFPAY | PROVIDERS: PCP Family Medicine; Visit Provider Family Medicine | DX: R07.9 Chest pain, unspecified (principal); G30.9 Alzheimer's disease, unspecified; F02.80 Dementia in other diseases classified elsewhere, unspecified severity, without behavioral disturbance, psychotic disturbance, mood disturbance, and anxiety | CPT/HCPCS: 80053; 80061; 83735; 84439; 84443; 85025 ==

== ENCOUNTER 2024-07-15 13:21 | Emergency (ER) | payer MEDICARE, SELFPAY ==
[2024-07-15 13:28] VITALS: BP 206/95; PULSE 77; TEMP 36.7; O2SAT 100; BMI 19.2
--- NOTE | 2024-07-15 13:43 | ECG_ITS ---
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
--- NOTE | 2024-07-15 14:30 | XRR_ITS ---
PROCEDURE INFORMATION: Exam: XR Chest Exam date and time: 07/15/2024 2:31 PM Age: 84 years old Clinical indication: Dyspnea; Additional info: Dyspnea/cough TECHNIQUE: Imaging protocol: Radiologic exam of the chest. Views: 1 view. COMPARISON: CR XR chest 2V* [id number] 05/25/2022 7:46 AM FINDINGS: Tubes, catheters and devices: Surgical clips overlie the left chest/axilla. Lungs: Mild ill-defined bibasilar opacities. Pleural spaces: Unremarkable. No pleural effusion. No pneumothorax. Heart/Mediastinum: Unremarkable. No cardiomegaly. Bones/joints: Unremarkable. XR/XR chest 1V portable [id number] IMPRESSION: Mild ill-defined bibasilar opacities could represent atelectasis, though infiltrate is not excluded in the correct clinical setting.
--- NOTE | 2024-07-15 14:33 | ED_ITS ---
HPI - General Adult 2 General: Chief complaint: General Medical Stated complaint: dr mancini, high bp Time Seen by Provider: 07/15/24 14:03 History of Present Illness: 84-year-old female presents to the [facility] ency room with complaint of elevated blood pressure. accompanies her she has some dementia and is difficult to get a lot of history from her. Blood pressures been elevated recently and she is complaining of headache and some chest discomfort. Associated symptoms: Reports chest pain; Deny dyspnea or rash Related Data Home Medications ?Medication ?Instructions ?Recorded ?Confirmed multivitamin 1 tab PO QAM 07/15/24 Previous Rx's ?Medication ?Instructions ?Recorded galantamine 4 mg tablet 4 mg PO BID #180 tabs meloxicam 7.5 mg tablet See Rx Instructions .Route 0 07/03/24 .COMPLEX #60 tabs isosorbide mononitrate 30 mg 30 mg PO DAILY #30 tabs 0 07/08/24 tablet,extended release 24 hr amlodipine 2.5 mg tablet 5 mg (2 x 2.5 mg) PO DAILY # 30 tabs 07/15/24 Allergies Allergy/AdvReac Type Severity Reaction Status Date / Time No Known Allergies Allergy Verified 07/15/24 13:38 Review of Systems 2 Const: Denies: fever(s) or chills Card: Reports: chest pain Resp: Denies: dyspnea GI: Denies: abdominal pain : Denies: dysuria, urinary frequency or urinary urgency Musc: Denies: neck pain or back pain Skin/Breast: Denies: rash PFSH ED 2 PFSH: Medical History DNI (do not intubate) Dr. Boone personally discussed with patient, & daughter. Advanced directive paperwork has been completed. Do not resuscitate Dr. Boone personally discussed with patient, & daughter. Advanced directive paperwork has been completed. 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, lumpectomy 07/13/2022 Osteoporosis Breast cancer History of nonmelanoma skin cancer Surgical History History of bilateral tubal ligation History of appendectomy History of lumpectomy of left breast (07/18/22) Left breast lumpectomy with axillary sentinel lymph node biopsy History of left breast biopsy (06/26/22) Family History Other CAD (coronary artery disease) Cancer Diabetes Hypertension Social History Smoking and tobacco/nicotine status: never used tobacco/nicotine Quit status (tobacco/nicotine): has quit using Year quit tobacco: Quit smoking at age 36 Former quit date comment: Smoked for 20 years Alcohol intake: former Former alcohol use details: 1 beer/day for years but nothing recently Substance/Drug Use: never Lives independently: Yes Household members: spouse Marital status: Marital status details: 66 years as of 2023 Number of children: 4 Leisure activites: reading and other Leisure activities details: puzzles [place]/[employer]: [employer] Special eden needs: No Agree to transfusion: Yes Physical Exam 2 Const: GENERAL APPEARANCE: cooperative ORIENTATION/CONSCIOUSNESS: Yes awake HENMT: COMMON NORMALS: normocephalic and atraumatic HEAD & SCALP: n ormocephalic and atraumatic Resp: COMMON NORMALS: normal respiratory effort, No retractions, No use of accessory muscles and clear to auscultation bilaterally AUSCULTATION: clear to auscultation bilaterally Cardio: COMMON NORMALS: regular rate, regular rhythm and No murmurs present (Cardio) RATE: regular rate RHYTHM: regular rhythm GI: COMMON NORMALS: Soft to palpation and No hepatosplenomegaly present A USCULTATION: Yes normoactive bowel sounds PALPATION: Yes Soft to palpation, No Tenderness to palpation present (GI), No Guarding due to palpation present (GI) and Yes No hepatosplenomegaly present Extremity: COMMON NORMALS: normal to inspection, capillary refill normal, no clubbing, cyanosis or edema, no calf tenderness and no pedal edema Neuro: OTHER: No focal neurologic deficits strength equal in all extremities no facial's asymmetry. Skin: COMMON NORMALS: no rashes or lesions noted GENERAL SKIN EXAM: no rashes or lesions noted Course 2 Vital Signs: Vital signs: Vital Signs Temperature 98.0 F 07/15/24 13:28 Pulse Rate 71 07/15/24 17:29 Blood Pressure 158/82 07/15/24 17:29 Pulse Oximetry 99 07/15/24 17:29 Oxygen Delivery Me thod Room Air 07/15/24 13:28 MDM - General Adult Medical Decision Making Patient has significant and she was very agitated. Blood pressure did improve with treatments given cardiac enzymes and EKGs did not show any acute coronary syndrome. is very anxious to take her home insisting. We had to convince him to wait for the second troponin. Will have her increase the amlodipine to 5 mg daily continue other medications and then recheck with her primary care within the next week return if has further problems. CT head negative. Differential Diagnosis CVA, TIA, accelerated hypertension, acute coronary syndrome Medical Records I reviewed the patient's medical records. Lab Data I reviewed the patient's lab results. 07/15/24 14:20 07/15/24 14:20 Radiology Impressions Chest X-Ray 07/15/24 14:30 IMPRESSION: Mild ill-defined bibasilar opacities could represent atelectasis, though infiltrate is not excluded in the correct clinical setting. Head CT 07/15/24 14:34 IMPRESSION: 1. No evidence of intracranial hemorrhage or mass effect. 2. Advanced small vessel changes with moderate parenchymal volume loss. 3. No acute intracranial findings. Laboratory Results WBC 6.09 10^3/uL (3.29-11.43) 07/15/24 14:20 RBC 4.09 10^6/uL (3.85-5.65) 07/15/24 14:20 Hgb 13.10 g/dL (11.27-16.99) 07/15/24 14:20 Hct 39.9 % (36-47) 07/15/24 14:20 MCV 97.6 fl (85-98) 07/15/24 14:20 MCH 32.0 pg (27-33) 07/15/24 14:20 MCHC 32.8 g/dL (30-55) 07/15/24 14:20 RDW 12.2 % (12.1-15.1) 07/15/24 14:20 Plt Count 199 10^3/cmm (157-399) 07/15/24 14:20 MPV 10.1 fL (7.4-10.4) 07/15/24 14:20 Neut % (Auto) 46.9 % 07/15/24 14:20 Lymph % (Auto) 40.9 % 07/15/24 14:20 Orange % (Auto) 8.2 % 07/15/24 14:20 Eos % (Auto) 3.3 % 07/15/24 14:20 Baso % (Auto) 0.5 % 07/15/24 14:20 Neut # (Auto) 2.86 10^3/uL (1.8-7.7) 07/15/24 14:20 Lymph # (Auto) 2.5 10^3/uL (0.8-4.8) 07/15/24 14:20 Orange # (Auto) 0.5 10^3/uL (0.2-0.9) 07/15/24 14:20 Eos # (Auto) 0.2 10^3/uL (0.0-0.8) 07/15/24 14:20 Baso # (Auto) 0.0 10^3/uL (0.0-0.1) 07/15/24 14:20 Nucleated RBC % (auto) 0 % 07/15/24 14:20 Nucleated RBCs # 0.0 /100WBC 07/15/24 14:20 Sodium 138 mmol/L (136-145) 07/15/24 14:20 Potassium 3.9 mmol/L (3.5-5.1) 07/15/24 14:20 Chloride 101 mmol/L (98-107) 07/15/24 14:20 Carbon Dioxide 23 mmol/L (22-29) 07/15/24 14:20 Anion Gap 17.9 (5-19) 07/15/24 14:20 BUN 23 mg/dL (8-23) 07/15/24 14:20 Creatinine 0.9 mg/dL (0.5-0.9) 07/15/24 14:20 GFR Calculation Not Reportable 07/15/24 14:20 Glucose 123 mg/dL (65-115) H 07/15/24 14:20 Calculated Osmolality 291 mOsm/kg (285-295) 07/15/24 14:20 Calcium 9.9 mg/dL (8.5-10.5) 07/15/24 14:20 Total Bilirubin 0.3 mg/dL (0.15-1.2) 07/15/24 14:20 AST 19 U/L (0-32) 07/15/24 14:20 ALT 12 U/L (0-33) 07/15/24 14:20 Alkaline Phosphatase 64 U/L (35-105) 07/15/24 14:20 Troponin T Baseline < 6 ng/L (0-10) 07/15/24 14:20 Troponin T 120 Minute 8.26 ng/L (0-10) 07/15/24 16:11 Delta Troponin T 2.90322 ABS# (0-10) 07/15/24 16:11 Total Protein 7.6 g/dL (6.6-8.7) 07/15/24 14:20 Albumin 4.4 g/dL (3.5-5.2) 07/15/24 14:20 Globulin 3.2 g/dL (1.3-4.6) 07/15/24 14:20 Urine Color Yellow (Yellow) 07/15/24 16:38 Urine Appearance Clear (CLEAR) 07/15/24 16:38 Urine pH 8.0 (5-7) A 07/15/24 16:38 Ur Specific [place] 1.004 (1.005-1.030) L 07/15/24 16:38 Urine Protein Negative (Negative) 07/15/24 16:38 Urine Glucose (UA) Negative (Normal) 07/15/24 16:38 Urine Ketones Negative (Negative) 07/15/24 16:38 Urine Blood Negative (Negative) 07/15/24 16:38 Urine Nitrate Negative (Negative) 07/15/24 16:38 Urine Bilirubin Negative (Negative) 07/15/24 16:38 Urine Urobilinogen 0.2 mg/dL (Negative) 07/15/24 16:38 Ur Leukocyte Esterase Negative (Negative) 07/15/24 16:38 Urine RBC 0-2 /hpf (0-2) 07/15/24 16:38 Urine WBC 0-5 /hpf (0-5) 07/15/24 16:38 Ur Squamous Epith Cells 0-5 /hpf (0-5) 07/15/24 16:38 Amorphous Sediment Not Reportable 07/15/24 16:38 Urine Bacteria None seen /hpf (NONE) 07/15/24 16:38 Hyaline Casts 0.40 /lpf 07/15/24 16:38 All radiology interpretation(s) finalized by discharge EKG Data EKG 1: Interpretation: EKG July 15, 2024 1343 sinus rhythm no acute ST changes noted. Rate of 76 TX interval 199 QT 394. Computer generated interpretation: Chest X-Ray 07/15/24 14:30 IMPRESSION: Mild ill-defined bibasilar opacities could represent atelectasis, though infiltrate is not excluded in the correct clinical setting. Head CT 07/15/24 14:34 IMPRESSION: 1. No evidence of intracranial hemorrhage or mass effect. 2. Advanced small vessel changes with moderate parenchymal volume loss. 3. No acute intracranial findings. Discharge Plan Discharge Patient Disposition: Home Clinical Impression: Alzheimer disease, Hypertension Condition: Stable Prescriptions: Changed amlodipine 2.5 mg tablet 5 mg PO DAILY Qty: 30 0RF No Action isosorbide mononitrate 30 mg tablet extended release 24 hr 30 mg PO DAILY Qty: 30 0RF galantamine 4 mg tablet 4 mg PO BID Qty: 180 3RF Rx Instructions: administer with AM and PM meals meloxicam 7.5 mg tablet See Rx Instructions .ROUTE .COMPLEX Qty: 60 1RF Dose Instruction: TAKE 1 TO 2 TABLETS BY MOUTH DAILY NEEDED FOR PAIN; take with food OR MILK Rx Instructions: TAKE 1 TO 2 TABLETS BY MOUTH DAILY NEEDED FOR PAIN; take with food OR MILK. multivitamin Tablet 1 tab PO QAM Discharge Orders: Discharge ED (Routine); Ordered 07/15/24 Ordered By: Hamilton Garcia Referrals: Viktoria Boone MD [Primary Care Provider, Family Practice] Discharge Diet: Usual diet Discharge Activity: Resume usual activity Patient Instructions: Opioid Safety, Pain Management Activity Restrictions/Additional Instructions: Thank you for choosing [facility] for your healthcare needs today. It is very important that you follow up as instructed or that you return to the Emergency Department should you have concerns or if your condition changes or worsens in any way. You are seen today with complaints of headache and chest discomfort cardiac enzymes are negative EKG does not show any acute changes. Your other labs are also markable. 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
--- NOTE | 2024-07-15 14:34 | CT_ITS ---
WS: [id number] CT HEAD TECHNIQUE: Noncontrast CT of the head obtained from the skullbase to the vertex. CLINICAL INFORMATION: Elevated blood pressure, headache COMPARISON: MRI head 09/27/2023 DLP: 1071.[address] scans at [facility] use at least one of these dose optimization techniques: automated exposure control; mA and/or kV adjustment per patient size (includes targeted exams where dose is matched to clinical indication); or iterative reconstruction. FINDINGS: No evidence of intracranial hemorrhage or mass effect. Ventricular system and basal cisterns are patent. Moderate to advanced small vessel changes with moderate parenchymal volume loss. No extra-axial fluid collections. No evidence of mass or mass effect. Small focus of increased attenuation LEFT basal ganglia likely mineralization. Vascular calcification. Chronic lacunar infarcts in the LEFT greater than RIGHT basal ganglia. Small vessel changes in the davi. Paranasal sinuses and mastoid air cells are well aerated. .Normal visualized soft tissues. CT/CT head wo con* [id number] IMPRESSION: 1. No evidence of intracranial hemorrhage or mass effect. 2. Advanced small vessel changes with moderate parenchymal volume loss. 3. No acute intracranial findings.
[2024-07-15] MEDS: hyDRALAzine 20 mg/mL INJ 1 mL 10 MG IVP ×2 (14:39→16:06)
[2024-07-15] MEDS: labetalol 5 mg/mL SDV 20mL 10 MG IVP (14:41)
[2024-07-15 14:43] LABS: Basophils % 0.5 %; Eosinophils # 0.2 10^3/uL (0.0-0.8); Eosinophils % 3.3 %; Hematocrit 39.9 % (36-47); Lymphocytes # 2.5 10^3/uL (0.8-4.8); Lymphocytes % 40.9 %; Mean Corpuscular HGB Conc 32.8 g/dL (30-55); Mean Corpuscular Volume 97.6 fl (85-98); Mean Platelet Volume 10.1 fL (7.4-10.4); Monocytes # 0.5 10^3/uL (0.2-0.9); Monocytes % 8.2 %; Neutrophils # 2.86 10^3/uL (1.8-7.7); Neutrophils % 46.9 %; Nucleated Red Blood Cells % 0 %; Platelet Count 199 10^3/cmm (157-399); Red Blood Count 4.09 10^6/uL (3.85-5.65); Red Cell Distribution Width 12.2 % (12.1-15.1); White Blood Count 6.09 10^3/uL (3.29-11.43)
[2024-07-15] MEDS: morphine 4 mg/mL SDV 1 mL 2 MG IVP (14:50)
[2024-07-15] MEDS: aspirin 81 mg Chew Tablet 324 MG PO (14:52)
[2024-07-15 14:54] LABS: Alanine Aminotransferase 12 U/L (0-33); Albumin Level 4.4 g/dL (3.5-5.2); Alkaline Phosphatase 64 U/L (35-105); Anion Gap 17.9 (5-19); Aspartate Amino Transferase 19 U/L (0-32); Blood Urea Nitrogen 23 mg/dL (8-23); Calcium 9.9 mg/dL (8.5-10.5); Carbon Dioxide 23 mmol/L (22-29); Chloride 101 mmol/L (98-107); Creatinine Clr Calc Pharmacy 34.7868; Globulin 3.2 g/dL (1.3-4.6); Glucose 123 mg/dL (65-115); Osmolality Calculated 291 mOsm/kg (285-295); Potassium 3.9 mmol/L (3.5-5.1); Sodium 138 mmol/L (136-145); Total Bilirubin 0.3 mg/dL (0.15-1.2); Total Protein 7.6 g/dL (6.6-8.7)
[2024-07-15 15:31] LABS: Troponin(5th) Baseline < 6 ng/L (0-10)
[2024-07-15 15:47] VITALS: BP 190/82
[2024-07-15] MEDS: enalaprilat 2.5 mg/2 mL SDV 1.25 MG IVP (16:07)
[2024-07-15 16:26] VITALS: BP 158/82; PULSE 71; O2SAT 99
--- NOTE | 2024-07-15 16:27 | PC.NURSE ---
PT REFUSING URINARY IN AND OUT CATH AND EKG. DR. LEONARDO NOTIFIED. NO NEW ORDERS AT THIS TIME.
[2024-07-15 17:03] LABS: Bilirubin Urine Negative (Negative); Blood Urine Negative (Negative); Glucose Urine UA Negative (Normal); Ketones Urine Negative (Negative); Leukocyte Esterase Urine Negative (Negative); Nitrate Urine Negative (Negative); Protein Urine Negative (Negative); Specific Gravity, Urine 1.004 (1.005-1.030); Urine Appearance Clear (CLEAR); Urine Color Yellow (Yellow); Urobilinogen Urine 0.2 mg/dL (Negative)
[2024-07-15 17:08] LABS: Add Urine Microscopic? YES; Bacteria Urine None Seen /hpf; RBC Urine 0-2 /hpf (0-2); Squamous Epithelial Cell Urine 0-5 /hpf (0-5); WBC Urine 0-5 /hpf (0-5)
[2024-07-15 17:10] LABS: Troponin 5 2HR 8.26 ng/L (0-10); Troponin 5 2HR Delta 2.26001 ABS# (0-10)
[2024-07-15 17:29] VITALS: BP 158/82; PULSE 71; O2SAT 99
== END 2024-07-15 17:31 | disposition home or self-care (01) ==
PROVIDERS: Emergency Provider Family Medicine; PCP Family Medicine
DX: G30.9 Alzheimer's disease, unspecified (principal); F02.80 Dementia in other diseases classified elsewhere, unspecified severity, without behavioral disturbance, psychotic disturbance, mood disturbance, and anxiety; I10 Essential (primary) hypertension; Z87.891 Personal history of nicotine dependence; Z85.3 Personal history of malignant neoplasm of breast; Z85.828 Personal history of other malignant neoplasm of skin
CPT/HCPCS: 36415; 70450; 71045; 80053; 81001; 84484; 85025; 93005; 96374; 96375; 96376; 99285; J0360; J2270; J3490; J9999

== ENCOUNTER → 2024-11-25 10:23 | Outpatient (BNVA) | payer MEDICARE, SELFPAY | PROVIDERS: PCP Family Medicine; Visit Provider Family Medicine | DX: R25.2 Cramp and spasm (principal); G30.9 Alzheimer's disease, unspecified; F02.80 Dementia in other diseases classified elsewhere, unspecified severity, without behavioral disturbance, psychotic disturbance, mood disturbance, and anxiety | CPT/HCPCS: 80048; 83735; 84443 ==